=== PATIENT | male | born 1975 | race African-American/Black ===

== ENCOUNTER 2016-11-07 19:05 | Emergency (ER) | payer SELFPAY ==
[~2016-11-07] VITALS: Ht 182.8 cm; Wt 117.9 kg
[~2016-11-07 19:05] MED LIST: ANAPROX DS550 MG PO; BACTROBAN CREAM15 GM PO; CLARITIN10 MG PO; FLEXERIL10 MG PO; HYDROCODONE BIT1 T11 PO; LIPITOR20 MG PO; LISINOPRIL10 M1 PO; NAPROSYN500 MG PO; SEPTRA DS 800 M1 TAB PO; VICODIN 5/500 505 MG PO
[2016-11-07] MEDS ORDERED: VITAMIN D1000 IU PO (19:21)
== END 2016-11-07 19:41 | disposition home or self-care (01) ==
LOC: ED 19:05
DX: Z00.8 Encounter for other general examination (principal); Z79.899 Other long term (current) drug therapy

== ENCOUNTER 2017-08-24 15:50 | Emergency (ER) | payer SELFPAY ==
[~2017-08-24] VITALS: Wt 115.7 kg
[~2017-08-24 15:50] MED LIST changes: +VITAMIN D1000 IU PO
[2017-08-24] MEDS ORDERED: AMOXICILLIN500 M3 PO (17:11)
== END 2017-08-24 17:14 | disposition home or self-care (01) ==
LOC: ED 15:50
DX: J02.0 Streptococcal pharyngitis (principal); R19.7 Diarrhea, unspecified; Z79.899 Other long term (current) drug therapy

== ENCOUNTER 2018-04-10 12:04 | Emergency (ER) | payer SELFPAY ==
[~2018-04-10] VITALS: Ht 182.8 cm; Wt 115.7 kg
[~2018-04-10 12:04] MED LIST changes: +AMOXICILLIN500 M3 PO
[2018-04-10 12:30] LABS: BILIRUBIN NEGATIVE (NEGATIVE); BLOOD TRACE-INTACT (NEGATIVE); CLARITY SL CLOUDY (CLEAR); COLOR YELLOW (YELLOW); GLUCOSE NEGATIVE (NEGATIVE); KETONE NEGATIVE (NEGATIVE); LEUKO ESTERASE NEGATIVE (NEGATIVE); NITRITE NEGATIVE (NEGATIVE); SPECIFIC GRAVITY 1.025 (1.005-1.030); UROBILINOGEN 0.2 E.U./dl (0.2-1.0)
[2018-04-10 13:18] LABS: BACTERIA TRACE; MUCOUS 2+
[2018-04-10 14:01] LABS: BASO # 0.1 10*3/uL (0.0-0.1); BASO % 0.4 % (0.0-1.0); EOS % 0.3 % (1.0-4.0); HEMATOCRIT 50.4 % (42.0-52.0); HEMOGLOBIN 17.1 g/dl (14.0-18.0); LYMPH % 14.1 % (27.0-41.0); MEAN CELL VOLUME 89.8 fl (80.0-94.0); MEAN CORPUSCULAR HGB 30.5 pg (27.0-31.0); MEAN CORPUSCULAR HGB CONC 33.9 g/dl (33.0-37.0); MEAN PLATELET VOLUME 10.5 fl (9.6-12.3); MONO # 1.2 10*3/uL (0.1-1.0); MONO % 8.2 % (3.0-9.0); NEUT # 10.9 10*3/uL (2.3-7.9); NEUT % 76.5 % (47.0-73.0); PLATELET COUNT AUTOMATED 262 10*3/uL (130-400); RED BLOOD COUNT 5.61 10*6/uL (4.50-5.90); RED CELL DISTRI WIDTH 12.7 % (0-14.5); WHITE BLOOD COUNT 14.2 10*3/uL (4.8-10.8)
[2018-04-10] MEDS ORDERED: LISINOPRIL40 MG PO (14:06)
[2018-04-10 14:18] LABS: ALBUMIN 3.9 gm/dl (3.1-4.5); ALKALINE PHOSPHATASE 43 U/L (45-117); BUN 10 mg/dl (7-24); CHLORIDE 105 mmol/L (98-107); CREATININE 0.96 mg/dL (0.70-1.30); LIPASE 108 U/L (73-393); POTASSIUM 3.4 mmol/L (3.5-5.1); SGOT/AST 33 IU/L (3-35); SGPT/ALT 65 U/L (12-78); SODIUM 141 mmol/L (136-145); TOTAL PROTEIN 7.7 gm/dL (6.4-8.2)
[2018-04-10] MEDS ORDERED: FLAGYL500 MG PO (15:42)
[2018-04-10] MEDS ORDERED: CIPRO500 MG PO (15:42)
== END 2018-04-10 15:45 | disposition home or self-care (01) ==
LOC: ED 12:04
PROVIDERS: Physician Assistant
DX: K52.9 Noninfective gastroenteritis and colitis, unspecified (principal); I10 Essential (primary) hypertension; Z79.899 Other long term (current) drug therapy

== ENCOUNTER 2019-02-06 21:49 | Emergency (ER) | payer SELFPAY ==
[~2019-02-06] VITALS: Ht 182.8 cm; Wt 120.2 kg
[~2019-02-06 21:49] MED LIST changes: +CIPRO500 MG PO; +FLAGYL500 MG PO; +LISINOPRIL40 MG PO
[2019-02-06] MEDS ORDERED: AMOXICILLIN500 M2 PO (23:54)
== END 2019-02-07 00:13 | disposition home or self-care (01) ==
LOC: ED 21:49
DX: J02.9 Acute pharyngitis, unspecified (principal); R09.89 Other specified symptoms and signs involving the circulatory and respiratory systems; R05 Cough; R53.83 Other fatigue; R19.7 Diarrhea, unspecified; I10 Essential (primary) hypertension; Z79.899 Other long term (current) drug therapy

== ENCOUNTER → 2024-03-19 | Day surgery (SDC) | payer BC ==
[~2024-03-19] VITALS: Ht 182.8 cm; Wt 115.7 kg
[~2024-03-19] MED LIST changes: +AMOXICILLIN500 M2 PO; +HYDR25T PO; +Midazolam Hydrochloride 2 MG/2 ML VIAL IV ONE; +NORVASC5 MG PO; +PROPOFOL 200 MG/20 ML VIAL IV ONE
[2024-03-19 09:27] VITALS: BP 157/93
[2024-03-19 10:29] VITALS: BP 136/85
[2024-03-19 10:47] VITALS: BP 163/102
== END | disposition home or self-care (01) ==
LOC: SDC 03-15 10:15
PROVIDERS: ATTEND Surgery
DX: Z12.11 Encounter for screening for malignant neoplasm of colon (principal); K64.8 Other hemorrhoids; I10 Essential (primary) hypertension; E78.00 Pure hypercholesterolemia, unspecified; Z79.899 Other long term (current) drug therapy

== ENCOUNTER → 2024-03-24 | Outpatient (CLI) | payer BC ==
[~2024-03-24] MED LIST changes: -Midazolam Hydrochloride 2 MG/2 ML VIAL IV ONE; -PROPOFOL 200 MG/20 ML VIAL IV ONE
[2024-03-24 08:38] LABS: BASO # 0.1 10*3/uL (0.0-0.1); BASO % 0.9 % (0.0-1.0); EOS # 0.3 10*3/uL (0.0-0.4); EOS % 2.8 % (1.0-4.0); HEMATOCRIT 49.2 % (42.0-52.0); MEAN CELL VOLUME 90.4 fl (80.0-94.0); MEAN CORPUSCULAR HGB 30.3 pg (27.0-31.0); MEAN CORPUSCULAR HGB CONC 33.5 g/dl (33.0-37.0); MEAN PLATELET VOLUME 9.9 fl (9.6-12.3); MONO # 0.9 10*3/uL (0.1-1.0); MONO % 9.7 % (3.0-9.0); NEUT # 6.2 10*3/uL (2.3-7.9); NEUT % 66.7 % (47.0-73.0); PLATELET COUNT AUTOMATED 300 10*3/uL (130-400); RED BLOOD COUNT 5.44 10*6/uL (4.50-5.90); RED CELL DISTRI WIDTH 12.2 % (0-14.5); WHITE BLOOD COUNT 9.2 10*3/uL (4.8-10.8)
[2024-03-24 09:03] LABS: ALKALINE PHOSPHATASE 49 U/L (46-116); BUN 15 mg/dl (9-23); CHLORIDE 105 mmol/L (98-107); CHOLESTEROL 240 mg/dL (<200); LDL CHOLESTEROL 168 mg/dL (9-159); POTASSIUM 3.9 mmol/L (3.4-5.1); SGPT/ALT 28 U/L (5-49); TOTAL PROTEIN 7.5 gm/dL (6.0-8.0); TRIGLYCERIDES 201 mg/dl (<150)
== END | disposition home or self-care (01) ==
LOC: LAB 08:19
PROVIDERS: ATTEND Nurse Practitioner Family
DX: I10 Essential (primary) hypertension (principal); E66.9 Obesity, unspecified

== ENCOUNTER → 2024-06-16 | Outpatient (CLI) | payer BC ==
[2024-06-16 07:22] LABS: BASO # 0.1 10*3/uL (0.0-0.1); BASO % 1.1 % (0.0-1.0); EOS # 0.2 10*3/uL (0.0-0.4); EOS % 2.4 % (1.0-4.0); HEMATOCRIT 52.4 % (42.0-52.0); MEAN CELL VOLUME 91.1 fl (80.0-94.0); MEAN CORPUSCULAR HGB 30.3 pg (27.0-31.0); MEAN CORPUSCULAR HGB CONC 33.2 g/dl (33.0-37.0); MEAN PLATELET VOLUME 10.1 fl (9.6-12.3); MONO # 0.7 10*3/uL (0.1-1.0); MONO % 7.9 % (3.0-9.0); NEUT # 6.2 10*3/uL (2.3-7.9); NEUT % 68.8 % (47.0-73.0); PLATELET COUNT AUTOMATED 317 10*3/uL (130-400); RED BLOOD COUNT 5.75 10*6/uL (4.50-5.90)
[2024-06-16 07:46] LABS: ALKALINE PHOSPHATASE 50 U/L (46-116); BUN 12 mg/dl (9-23); CHLORIDE 102 mmol/L (98-107); CHOLESTEROL 286 mg/dL (<200); LDL CHOLESTEROL 213 mg/dL (9-159); POTASSIUM 4.6 mmol/L (3.4-5.1); SGPT/ALT 43 U/L (5-49); TOTAL PROTEIN 7.9 gm/dL (6.0-8.0); TRIGLYCERIDES 185 mg/dl (<150)
== END | disposition home or self-care (01) ==
LOC: LAB 07:06
PROVIDERS: ATTEND Nurse Practitioner Family
DX: I10 Essential (primary) hypertension (principal); E78.00 Pure hypercholesterolemia, unspecified; E66.9 Obesity, unspecified; R53.83 Other fatigue; R73.09 Other abnormal glucose

== ENCOUNTER → 2024-09-21 | Outpatient (CLI) | payer BC ==
[2024-09-21 16:48] LABS: BASO # 0.1 10*3/uL (0.0-0.1); BASO % 0.7 % (0.0-1.0); EOS # 0.2 10*3/uL (0.0-0.4); EOS % 2.1 % (1.0-4.0); HEMATOCRIT 49.4 % (42.0-52.0); MEAN CELL VOLUME 89.8 fl (80.0-94.0); MEAN CORPUSCULAR HGB 30.5 pg (27.0-31.0); MEAN PLATELET VOLUME 10.8 fl (9.6-12.3); MONO # 0.9 10*3/uL (0.1-1.0); MONO % 7.9 % (3.0-9.0); NEUT # 7.4 10*3/uL (2.3-7.9); NEUT % 66.6 % (47.0-73.0); PLATELET COUNT AUTOMATED 309 10*3/uL (130-400); RED CELL DISTRI WIDTH 12.3 % (0-14.5); WHITE BLOOD COUNT 11.1 10*3/uL (4.8-10.8)
[2024-09-21 17:10] LABS: ALKALINE PHOSPHATASE 45 U/L (46-116); BUN 18 mg/dl (9-23); CHLORIDE 102 mmol/L (98-107); POTASSIUM 3.5 mmol/L (3.4-5.1); SGPT/ALT 24 U/L (5-49); TOTAL PROTEIN 7.9 gm/dL (6.0-8.0)
== END | disposition home or self-care (01) ==
LOC: LAB 15:33
PROVIDERS: ATTEND Nurse Practitioner Family
DX: I10 Essential (primary) hypertension (principal); E11.9 Type 2 diabetes mellitus without complications; E78.2 Mixed hyperlipidemia; Z76.89 Persons encountering health services in other specified circumstances

== ENCOUNTER → 2024-12-10 | Outpatient (CLI) | payer BC ==
[2024-12-10 18:24] LABS: VITAMIN D, 25-HYDROXY 21.8 ng/mL (30-100)
[2024-12-10 18:25] LABS: BUN 10 mg/dl (9-23); SGPT/ALT 36 U/L (5-49)
== END | disposition home or self-care (01) ==
LOC: LAB 17:20
PROVIDERS: ATTEND Nurse Practitioner Family
DX: I10 Essential (primary) hypertension (principal); E11.9 Type 2 diabetes mellitus without complications; E55.9 Vitamin D deficiency, unspecified; R53.83 Other fatigue; Z00.00 Encounter for general adult medical examination without abnormal findings

== ENCOUNTER → 2024-12-18 | Outpatient (CLI) | payer BC ==
[2024-12-18 18:16] LABS: BUN 15 mg/dl (9-23)
== END | disposition home or self-care (01) ==
LOC: LAB 15:18
PROVIDERS: ATTEND Nurse Practitioner Family
DX: E87.5 Hyperkalemia (principal)

== ENCOUNTER → 2024-12-28 | Outpatient (CLI) | payer BC ==
[2024-12-28 16:44] LABS: BASO # 0.1 10*3/uL (0.0-0.1); BASO % 0.6 % (0.0-1.0); EOS # 0.2 10*3/uL (0.0-0.4); EOS % 2.2 % (1.0-4.0); MEAN CELL VOLUME 92.3 fl (80.0-94.0); MEAN CORPUSCULAR HGB 30.4 pg (27.0-31.0); MEAN PLATELET VOLUME 10.8 fl (9.6-12.3); MONO # 0.8 10*3/uL (0.1-1.0); MONO % 9.5 % (3.0-9.0); NEUT # 6.0 10*3/uL (2.3-7.9); NEUT % 68.6 % (47.0-73.0); NUCLEATED RED BLOOD CELL 0.0 % (0.0-0.0); NUCLEATED RED BLOOD CELL 0.0 10*3/uL (0.0-0.0); PLATELET COUNT AUTOMATED 251 10*3/uL (130-400); RED CELL DISTRI WIDTH 12.5 % (0-14.5)
[2024-12-28 17:08] LABS: BUN 10 mg/dl (9-23); LDL CHOLESTEROL 105 mg/dL (9-159); SGPT/ALT 32 U/L (5-49)
== END | disposition home or self-care (01) ==
LOC: LAB 15:48
PROVIDERS: ATTEND Nurse Practitioner Family
DX: I10 Essential (primary) hypertension (principal); E11.9 Type 2 diabetes mellitus without complications; E78.2 Mixed hyperlipidemia; E55.9 Vitamin D deficiency, unspecified; Z00.00 Encounter for general adult medical examination without abnormal findings